=== PATIENT | male | born 1950 | race Caucasian/White ===

== ENCOUNTER → 2019-07-19 | Outpatient (CLI) | payer MEDICARE, OTHER ==
[~2019-07-19] VITALS: Ht 180.3 cm; Wt 94.8 kg
[2019-07-19 13:22] VITALS: BP 111/69
[2019-07-19 13:55] LABS: APTT 27.5 Seconds (25.0-31.3); INR 1.1; PROTIME 10.9 Seconds (9.20-11.50)
[2019-07-19 14:20] VITALS: BP 129/71
[2019-07-19 14:23] VITALS: BP 118/69
[2019-07-19 14:26] VITALS: BP 115/79
[2019-07-19 14:29] VITALS: BP 113/66
[2019-07-19 14:50] VITALS: BP 104/57
== END | disposition home or self-care (01) ==
LOC: M.ULTRA 12:33
PROVIDERS: Radiology Diagnostic Radiology
DX: C61 Malignant neoplasm of prostate (principal); Z79.899 Other long term (current) drug therapy